=== PATIENT | male | born 1960 | race Caucasian/White ===

== ENCOUNTER 2016-11-08 18:45 | Emergency (ER) | payer OTHER ==
[~2016-11-08] VITALS: Ht 172.7 cm; Wt 57.2 kg
[~2016-11-08 18:45] MED LIST: LEVAQUIN500 MG PO; LEVOTHYROXIN0.112 M1 PO; PREDNISONE 20MG20 MG PO
--- OUTSIDE RECORDS SUMMARY | 2016-11-08 18:54 | External Medical Summary Rpt ---
Author Author , Organization [facility] Address Unknown Phone Unavailable Purpose Continuity of Care Document - through 2016
--- OUTSIDE RECORDS SUMMARY | 2016-11-08 18:54 | External Medical Summary Rpt ---
Demographics Preferred Language Yemeni Marital Status Unknown Anabaptist Affiliation Unknown Race Unknown Ethnic Group Unknown Author Author , Organization [facility] Address Unknown Phone Unavailable Purpose Continuity of Care Document - through 2016 Immunization No patient found.
--- OUTSIDE RECORDS SUMMARY | 2016-11-08 18:54 | External Medical Summary Rpt ---
Demographics Preferred Language Beninese Marital Status Unknown Anabaptism Affiliation Unknown Race Unknown Ethnic Group Unknown Author Author , Organization [facility] Address Unknown Phone Unavailable Purpose Continuity of Care Document - through 2016 Immunization No patient found.
--- NOTE | 2016-11-08 19:20 | Emergency Room Report ---
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 N Clinical Suspician of Infection? N Mental Status: 1 - Regular (Normal Baseline) Sepsis Risk:Low Sepsis Risk Have you (or family members/close friends) recently traveled outside the [place]? N If Yes, where/when: Have you had exposure to infectious disease within the past month? N TB? Other? Specify: Source patient, RN notes reviewed, family, RN/MD Exam Limitations no limitations Comment This is a 56-year-old male patient presented to emergency room with shortness of breath, productive cough since (past 4 days), seen in the urgent treatment care center and diagnosed with bronchitis on Tuesday (2 days ago). Patient is here today with persistent coughing, triggering epigastric pain, nausea and vomiting. That she is currently on Levaquin and prednisone. He is a heavy smoker. ALLERGIES Coded Allergies: No Known Allergies (11/08/16) Home Medications Active Scripts Levofloxacin (Levaquin 500MG) 500 MG PO DAILY #10 TAB Prov: 11/06/16 Prednisone (Prednisone 20MG) 20 MG PO BID #10 TAB Prov: 11/06/16 Reported Medications Levothyroxine Sodium (Levothyroxine 0.112MG) 0.112 MG PO DAILY History Medical History General CAD? No Angina: No PA: No Hypertension? Yes Hyperlipidemia? No CHF? No DVT? No PE? No COPD? No Asthma? No Anemia? No GERD? No Gastric ulcers? No GI Bleed? No Hernia? No Thyroid Problems? Yes Hypothyroidism? Yes CVA? No Seizures? No Diabetes? No Renal Insuffiency? No End Stage Renal Disease? No UTI? No Stones? Yes BPH? No GB Disease: No Nephritic Syndrome? No Asplenia? No Hepatitis? No Sickle Cell Disease? No Arthritis? No Migraines? No Cataracts? No Glaucoma? No MRSA? No HIV? No TB? No Anxiety? No Depression? No Cancer? No Immunization Hx DT/Tetanus 5-10 Years Ago Surgical Hx Previous Surgery?Y 7 KIDNEY STONE SURGERIES THYROID REMOVED Family History Family Hx Cancer Yes Social History Smoking Hx Smoker: Current Every Day Smoker Tobacco: Yes Type Cigarettes Packs/day 1 1/2 - 2 Packs Alcohol Alcohol: No Review of Systems All Other Systems Reviewed and Negative Respiratory cough, shortness of breath, wheezing Gastrointestinal abdominal pain (epigastric pain), nausea, vomiting Physical Exam Vital Signs Vital Signs Date Time Temp Pulse Resp B/P Pulse O2 O2 Flow FiO2 Ox Delivery Rate 11/08 1849 99.1 105 16 150/108 98 General Appearance normal appearance, WD/WN, mild distress Neck normal inspection, non-tender, supple, full range of motion Respiratory Status Yes: trachea midline, chest symmetrical, non tender chest. No: respiratory distress. Lung Sounds anterior: wheezing. posterior: wheezing. bilateral: wheezing. left: wheezing. right: wheezing. 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 No Results/Orders Laboratory Tests 11/08/161909: Lactic Acid 0.9 11/08/161909: B-Natriuretic Peptide 9 11/08/161909: Amylase 64, Lipase 170 11/08/161909: Sodium 140, Potassium 2.9 *L, Chloride 103, Carbon Dioxide 25, BUN 36 H, Creatinine 2.3 H, Estimated Creat Clear 29 L, Estimated GFR (MDRD) 29, Glucose 140 H, Calcium 9.0, Total Bilirubin 0.4, AST 26, ALT 44, Alkaline Phosphatase 130 H, Creatine Kinase 164, CK-MB (CK-2) Rel Index 1.2, CK and CKMB Interp 2.0, Troponin I 0.03, Total Protein 7.9, Albumin 3.7, Globulin 4.2 H, Albumin/ Globulin Ratio 0.9 L, WBC 23.7 *H, RBC 4.86, Hgb 15.0, Hct 44.2, MCV 91.0, RDW 12.1, Plt Count 363, MPV 6.2 L, Gran % 85.4 H, Gran # 20.2 H, Total Counted 100, Lymphocytes % 9.7 L, Monocytes % 4.6, Eosinophils % 0.1, Basophils % 0.1, Neutrophils 85 H, Lymphocytes (Manual) 10, Lymphocytes # 2.3, Monocytes (Manual ) 3, Monocytes # 1.1 H, Eosinophils # 0.0, Basophils # 0.0, RBC/WBC/PLT Morphology NORMAL, Atypical Lymphocytes 2, Platelet Estimate NORMAL, PUBS MCHC 33.9, MCH 30.8 Current Medication Orders Sig/Maki Start time Last Medication Dose Route Stop Time Status Admin Pantoprazole Sodium 40 MG ONCE ONE 11/08 2014 DC PO 11/09 2015 Potassium Chloride 60 MEQ ONCE ONE 11/08 2014 DC PO 11/09 2015 Potassium Chloride 0 .STK-MED ONE 11/08 2014 DC PO Sodium Chloride 1,000 ML .Q1H1M 11/08 2014 AC IV 11/08 2114 Sodium Chloride 10 ML PRN PRN 11/08 2014 AC IV 11/09 2008 Sodium Chloride 1,000 ML .STK-MED ONE 11/08 2014 DC IV Pantoprazole Sodium 0 .STK-MED ONE 11/08 2013 DC .ROUTE Albuterol/Ipratropium 3 ML ONCE ONE 11/08 193 DC 11/08 INH 11/08 1930 193 Sodium Chloride 10 ML PRN PRN 11/08 190 AC IV 11/09 1853 Orders Procedure Date/time Status RT REQUEST DUONEB 11/08 1925 Active LIPASE 11/08 1918 Complete BRAIN NATRIURETIC PEPTIDE 11/08 1918 Complete AMYLASE 11/08 1918 Complete DIFFERENTIAL-WBC 11/08 1909 Complete ELECTROCARDIOGRAM REQUEST 11/08 1854 Active CHEST(2 VIEWS-NOT PORTABLE) 11/08 1854 Active IV SALINE LOCK 11/08 1854 Active CULTURE, BLOOD 11/08 1854 Active LACTIC ACID 11/08 1854 Complete CBC WITH AUTO DIFF 11/08 1854 Complete CARDIAC ENZYMES 11/08 1854 Complete CHEM 12 PROFILE 11/08 1854 Complete Departure Departure Time of Disposition 2008 Disposition DC Home or Self Care(routine) Clinical Impression Primary Impression: Reactive airway disease Qualifiers: Asthma severity: unspecified severity Asthma complication type: uncomplicated Qualified Code: J45.909 - Unspecified asthma, uncomplicated Secondary Impressions: Dehydration Gastritis Qualifiers: Gastritis type: unspecified gastritis Chronicity: acute Gastritis bleeding: without bleeding Qualified Code: K29.00 - Acute gastritis without bleeding Hypokalemia Leukocytosis Qualifiers: Leukocytosis type: unspecified Qualified Code: D72.829 - Elevated white blood cell count, unspecified Nausea & vomiting Qualifiers: Vomiting type: unspecified Vomiting Intractability: unspecified Qualified Code: R11.2 - Nausea with vomiting, unspecified Condition STABLE Patient Instructions DI for Acute Bronchitis, DI for Hypokalemia, Reactive Airway Disease-Adult Additional Instructions Please take the medications prescribed as directed, eat at least 3 meals per day , drink plenty of fluids, do not take the medication on an end systolic. Follow- up with your PCP in 2-3 days if no better. Discharge Counseling Counseled pt/family regarding diagnosis, test results, medications/RX, home care, follow up needs Comment Please take the medications prescribed as directed, eat at least 3 meals per day , drink plenty of fluids, do not take the medication on an end systolic. Follow- up with your PCP in 2-3 days if no better. Prescriptions Current Visit Scripts Albuterol (Albuterol-Hfa Inhaler) 1 PUFF IH QID #1 INH Ref 2 Pantoprazole Sodium (Protonix 40MG TAB) 40 MG PO DAILY #30 TAB Ref 2 Benzonatate (Tessalon Perle) 100 MG PO TIDP PRN cough #20 SGL ED Critical Care Critical Care No
[2016-11-08 19:24] LABS: LYMPH # 2.3 K/mm3 (0.7-4.5); LYMPH % 9.7 % (10-50)
[2016-11-08 19:48] LABS: NEUTROPHILS 85 % (42-76)
[2016-11-08] MEDS ORDERED: ALBUTEROL-200 PUFFS/ IH (20:14)
[2016-11-08] MEDS ORDERED: TESSALON PERLE100 M1 PO (20:15)
[2016-11-08] MEDS ORDERED: PROTONIX 40MG T40 MG PO (20:15)
--- NOTE | 2016-11-08 20:51 | RADIOLOGY REPORT PS360 ---
CHEST(2 VIEWS-NOT PORTABLE) Ordering Physician: Kulwinder Muñoz MD Patient Age: 56 years: Male HISTORY: EPIGASTRIC PAIN epigastric pain. Abdominal pain TECHNIQUE: PA and lateral chest COMPARISON is made to previous chest film 06/01/2012 FINDINGS The lungs appear clear with nothing definitely acute. No focal pneumonia today. Heart jazmin and mediastinal structures appear satisfactory. Chest wall T-spine and ribs grossly unremarkable. . I would note that there is a on 2012 chest film there is a small patchy area of infiltrate peripherally on 2012 study at the left base may account for the subtle patchy area of density seen on today's CT abdomen.. It may reflect chronic change IMPRESSION: --------- . Stable chest with nothing definitely acute Subtle chronic changes.
[2016-11-08 20:55] VITALS: BP 156/95
== END 2016-11-08 21:01 | disposition home or self-care (01) ==
LOC: ER 18:45
PROVIDERS: Emergency Medicine
DX: J45.909 Unspecified asthma, uncomplicated (principal); K29.00 Acute gastritis without bleeding; D72.829 Elevated white blood cell count, unspecified; I10 Essential (primary) hypertension; Z72.0 Tobacco use; E87.6 Hypokalemia; E86.0 Dehydration